=== PATIENT | female | born 1990 | race Two or more races ===

== ENCOUNTER 2017-10-06 09:36 | Emergency (ER) | payer MEDICAID ==
[~2017-10-06] VITALS: Ht 160 cm; Wt 78.5 kg
[2017-10-06] MEDS ORDERED: KETOROLAC TROMETH 30 MG/ML 1ML VIAL IV ONE (10:30)
[2017-10-06] MEDS ORDERED: DIAZEPAM 5 MG/ML 2ML SYRG IV ONE (10:30)
[2017-10-06] MEDS ORDERED: LORazepam 2MG/ML-1ML VIAL IV ONE (12:00)
[2017-10-06 13:13] VITALS: BP 113/69
== END 2017-10-06 13:25 | disposition home or self-care (01) ==
LOC: ER 09:36 → EDBD 09:36 → ER 13:25
DX: S16.1XXA Strain of muscle, fascia and tendon at neck level, initial encounter (principal); X58.XXXA Exposure to other specified factors, initial encounter; Y93.89 Activity, other specified; Y99.8 Other external cause status; Y92.89 Other specified places as the place of occurrence of the external cause
CPT/HCPCS: 70490; 96374; 96375; 99284; J1885; J2060; J3360

== ENCOUNTER 2021-11-13 17:51 | Emergency (ER) | payer MEDICAID ==
[~2021-11-13] VITALS: Ht 157.5 cm; Wt 82.7 kg
[2021-11-13 19:54] LABS: Urine Bacteria MOD /hpf (None Seen); Urine Blood 2+ /uL (Negative); Urine Hyaline Cast FEW /lpf (0 - 2); Urine Mucus FEW (None Seen); Urine Specific Gravity 1.032 (1.001-1.035); Urine WBC 3 /hpf (0 - 5)
[2021-11-13 20:11] LABS: Basophils # (auto) 0 10 ^3/uL (0-0.2); Basophils % (auto) 0.3 % (0.0-2.0); Eosinophils # (auto) 0.1 10 ^3/uL (0-0.8); Eosinophils % (auto) 0.8 % (0.0-7.0); Hematocrit 40.4 % (36.0-46.0); Hemoglobin 13.5 g/dL (12.2-16.2); Lymphocytes # (auto) 2.4 10 ^3/uL (0.4-5.4); Lymphocytes % (auto) 25.6 % (10.0-50.0); Mean Corpuscular Hemoglobin 29.5 pg (28.0-32.0); Mean Corpuscular Hgb Conc. 33.3 g/dL (32.0-36.0); Mean Corpuscular Volume 88.4 fL (80.0-100.0); Monocytes # (auto) 0.6 10 ^3/uL (0-1.3); Monocytes % (auto) 7.1 % (0.0-12.0); Neutrophils # (auto) 6.1 10 ^3/uL (1.6-8.6); Neutrophils % (auto) 66.2 % (37.0-80.0); Red Blood Cells 4.56 10^6/uL (4.0-5.20); Red Cell Distribution Width 13.5 % (11.8-14.3); White Blood Cell 9.2 10^3/uL (4.4-10.8)
[2021-11-13 20:46] LABS: Albumin 3.9 g/dL (3.4-5.0); BUN/Creatinine Ratio 14.7; Calcium 8.3 mg/dL (8.5-10.1); Potassium 3.4 mmol/L (3.5-5.1)
[2021-11-13 20:50] LABS: Bilirubin, Total 0.7 mg/dL (0.2-1.0); Total Protein 8.1 g/dL (6.4-8.2)
[2021-11-14] MEDS ORDERED: CIPR-173 PO (06:55)
[2021-11-14] MEDS ORDERED: NITR-87 PO (06:55)
[2021-11-14 07:26] VITALS: BP 118/74
== END 2021-11-14 07:27 | disposition home or self-care (01) ==
LOC: ER 17:51
DX: K57.90 Diverticulosis of intestine, part unspecified, without perforation or abscess without bleeding (principal); N39.0 Urinary tract infection, site not specified
CPT/HCPCS: 36415; 74176; 80053; 81001; 85025